=== PATIENT | male | born 1965 | race Caucasian/White ===

== ENCOUNTER 2021-07-29 09:39 | Inpatient (IN) | payer OTHER ==
[~2021-07-29] VITALS: Ht 170.2 cm; Wt 75.0 kg
[2021-07-29] VITALS (7 sets, daily range): BP systolic 103–116; BP diastolic 64–74
[2021-07-29] MEDS ORDERED: SODIUM CHLORIDE 0.9% 1,000 ML IV ONE (11:00)
[2021-07-29] MEDS ORDERED: ONDANSETRON HCL 4 MG/2 ML VIAL IVP ONE (11:00)
[2021-07-29] MEDS ORDERED: KETOROLAC TROMETHAMINE 30 MG/ML VIAL IVP ONE (11:00)
[2021-07-29 11:17] LABS: BASOPHILS % (AUTO) 0.3 % (0.0-2.0); EOSINOPHILS % (AUTO) 0.8 % (1.0-6.0); HEMATOCRIT 43.6 % (41-53); HEMOGLOBIN 14.8 g/dL (13.5-17.5); LYMPHOCYTES # (AUTO) 1.9 K/uL (1.0-4.8); LYMPHOCYTES % (AUTO) 20.6 % (22.0-44.0); MEAN CORPUSCULAR HEMOGLOBIN 29.1 pg (26.0-34.0); MEAN CORPUSCULAR HGB CONC 33.9 G/dL (31.0-37.0); MEAN CORPUSCULAR VOLUME 86 fL (80-100); MONOCYTES # (AUTO) 0.6 K/uL (0.1-1.0); NEUTROPHILS # (AUTO) 6.4 K/uL (1.8-7.7); NEUTROPHILS % (AUTO) 71.3 % (40.0-70.0); PLATELET COUNT (AUTO) 271 K/uL (150-450); RED BLOOD CELL COUNT(AUTO) 5.09 MIL/uL (4.50-5.90)
[2021-07-29 11:24] LABS: ANION GAP 5 mmol/L (8-16); CALCIUM, TOTAL 8.9 mg/dL (8.8-10.5); CARBON DIOXIDE 32 mmol/L (22-29); CHLORIDE 104 mmol/L (98-107); CREATININE 0.97 mg/dL (0.60-1.30); GLOMERULAR FILTR. RATE CALC > 60 mL/min (>60); GLUCOSE,RANDOM 91 mg/dL (70-110); POTASSIUM 4.3 mmol/L (3.5-5.1); SODIUM SERUM 141 mmol/L (136-145); UREA NITROGEN, BLOOD 10 mg/dL (7-18)
[2021-07-29 11:27] LABS: COVID AG,FIA SOURCE NASOPHARYNGEAL
[2021-07-29 11:41] LABS: ALANINE AMINOTRANSFERASE 25 U/L (12-78); ALBUMIN 3.7 g/dL (3.4-5.0); ALKALINE PHOSPHATASE 56 U/L (46-116); ASPARTATE AMINOTRANSFERASE 16 U/L (15-37); BILIRUBIN,TOTAL 0.4 mg/dL (0.1-1.0); TOTAL PROTEIN, SERUM 7.7 g/dL (6.4-8.2)
[2021-07-29] MEDS ORDERED: HydrOXYzine PAMOATE 50 MG CAPSULE PO PRN (11:45)
[2021-07-29] MEDS ORDERED: IBUPROFEN 600 MG TABLET PO PRN (11:45)
[2021-07-29] MEDS ORDERED: ONDANSETRON HCL 4 MG/2 ML VIAL IVP PRN (11:45)
[2021-07-29] MEDS ORDERED: CloNIDine HCL 0.1 MG TABLET PO PRN ×2 (11:45)
[2021-07-29] MEDS ORDERED: ACETAMINOPHEN 325 MG TABLET PO PRN ×2 (11:45)
[2021-07-29] MEDS ORDERED: LORazepam 1 MG TABLET PO PRN (11:45)
[2021-07-29] MEDS ORDERED: DICYCLOMINE HCL 10 MG CAPSULE PO PRN (11:45)
[2021-07-29] MEDS ORDERED: MAG HYDROX/AL HYDROX/SIMETH ES 30 ML SUSPENSION UDCUP PO PRN ×2 (11:45)
[2021-07-29] MEDS ORDERED: LOPERAMIDE HCL 2 MG/15 ML SUSPENSION UDCUP PO PRN (11:45)
[2021-07-29] MEDS ORDERED: PROMETHAZINE HCL 25 MG TABLET PO PRN (11:45)
[2021-07-29] MEDS ORDERED: BACLOFEN 10 MG TABLET PO PRN (11:45)
[2021-07-29] MEDS ORDERED: TraZODone HCL 50 MG TABLET PO PRN (11:45)
[2021-07-29] MEDS: CloNIDine HCL 0.1 MG TABLET PO SCH ×3 (12:00→21:00)
[2021-07-29] MEDS: SODIUM CHLORIDE 0.45% 1,000 ML IV SCH (13:48)
[2021-07-29] MEDS ORDERED: INFLUENZA VIRUS VACCINE QVS 2021-22 (6MO+)/PF 60 MCG/0.5 ML SYRINGE IM. ONE (15:15)
[2021-07-29 23:24] LABS: AMPHET/METH SCREEN,URINE POSITIVE (NEGATIVE); BARBITURATE SCREEN, URINE NEGATIVE (NEGATIVE); BENZODIAZEPINES SCREEN,URINE NEGATIVE (NEGATIVE); CANNABINOID SCREEN,URINE NEGATIVE (NEGATIVE); COCAINE SCREEN,URINE NEGATIVE (NEGATIVE); METHADONE SCREEN, URINE NEGATIVE (NEGATIVE); OPIATE SCREEN,URINE NEGATIVE (NEGATIVE); PHENCYCLIDINE SCREEN,URINE NEGATIVE (NEGATIVE)
[2021-07-30] MEDS: SODIUM CHLORIDE 0.45% 1,000 ML IV SCH ×2 (01:41→17:02)
[2021-07-30 01:46] VITALS: BP 120/77
[2021-07-30] MEDS: CloNIDine HCL 0.1 MG TABLET PO SCH ×4 (05:26→22:05)
[2021-07-30 05:30] VITALS: BP 119/81
[2021-07-30 07:21] VITALS: BP 104/68
[2021-07-30 20:24] VITALS: BP 103/67
[2021-07-31 03:19] VITALS: BP 96/57
[2021-07-31] MEDS: SODIUM CHLORIDE 0.45% 1,000 ML IV SCH ×2 (05:56→19:29)
[2021-07-31] MEDS: CloNIDine HCL 0.1 MG TABLET PO SCH ×4 (05:58→22:13)
[2021-07-31 07:29] VITALS: BP 102/68
[2021-07-31] MEDS: HydrOXYzine PAMOATE 50 MG CAPSULE PO PRN ×2 (10:02→16:57)
[2021-07-31 12:26] VITALS: BP 105/63
[2021-07-31 15:42] VITALS: BP 102/64
[2021-07-31 16:58] VITALS: BP 111/69
[2021-07-31 19:30] VITALS: BP 108/70
[2021-08-01 04:00] VITALS: BP 110/68
[2021-08-01] MEDS: CloNIDine HCL 0.1 MG TABLET PO SCH ×4 (06:31→22:07)
[2021-08-01 07:41] VITALS: BP 116/77
[2021-08-01] MEDS: HydrOXYzine PAMOATE 50 MG CAPSULE PO PRN (08:04)
[2021-08-01] MEDS: SODIUM CHLORIDE 0.45% 1,000 ML IV SCH (08:05)
[2021-08-01 12:00] VITALS: BP 97/60
[2021-08-01 17:00] VITALS: BP 103/62
[2021-08-01 19:35] VITALS: BP 106/64
[2021-08-02] VITALS (7 sets, daily range): BP systolic 75–116; BP diastolic 39–70
[2021-08-02] MEDS: CloNIDine HCL 0.1 MG TABLET PO SCH ×4 (05:37→22:00)
[2021-08-02 07:09] LABS: BASOPHILS % (AUTO) 0.6 % (0.0-2.0); EOSINOPHILS % (AUTO) 2.8 % (1.0-6.0); HEMATOCRIT 45.2 % (41-53); HEMOGLOBIN 15.5 g/dL (13.5-17.5); LYMPHOCYTES # (AUTO) 1.7 K/uL (1.0-4.8); LYMPHOCYTES % (AUTO) 27.2 % (22.0-44.0); MEAN CORPUSCULAR HEMOGLOBIN 29.4 pg (26.0-34.0); MEAN CORPUSCULAR HGB CONC 34.3 G/dL (31.0-37.0); MEAN CORPUSCULAR VOLUME 86 fL (80-100); MONOCYTES # (AUTO) 0.7 K/uL (0.1-1.0); MONOCYTES % (AUTO) 11.4 % (2.0-9.0); NEUTROPHILS # (AUTO) 3.7 K/uL (1.8-7.7); PLATELET COUNT (AUTO) 226 K/uL (150-450); RED BLOOD CELL COUNT(AUTO) 5.27 MIL/uL (4.50-5.90)
[2021-08-02 07:22] LABS: ALANINE AMINOTRANSFERASE 21 U/L (12-78); ALBUMIN 3.4 g/dL (3.4-5.0); ALKALINE PHOSPHATASE 67 U/L (46-116); ANION GAP 4 mmol/L (8-16); ASPARTATE AMINOTRANSFERASE 15 U/L (15-37); BILIRUBIN,TOTAL 0.3 mg/dL (0.1-1.0); CALCIUM, TOTAL 9.2 mg/dL (8.8-10.5); CARBON DIOXIDE 32 mmol/L (22-29); CHLORIDE 104 mmol/L (98-107); CREATININE 1.08 mg/dL (0.60-1.30); GLOMERULAR FILTR. RATE CALC > 60 mL/min (>60); GLUCOSE,RANDOM 93 mg/dL (70-110); POTASSIUM 4.6 mmol/L (3.5-5.1); SODIUM SERUM 140 mmol/L (136-145); TOTAL PROTEIN, SERUM 7.6 g/dL (6.4-8.2); UREA NITROGEN, BLOOD 17 mg/dL (7-18)
[2021-08-02] MEDS: DOXYCYCLINE HYCLATE 100 MG TABLET PO SCH ×2 (14:17→20:44)
[2021-08-03 01:00] VITALS: BP 115/58
[2021-08-03 05:17] VITALS: BP 119/67
[2021-08-03] MEDS: CloNIDine HCL 0.1 MG TABLET PO SCH ×2 (05:33→12:00)
[2021-08-03 08:06] LABS: BASOPHILS % (AUTO) 0.4 % (0.0-2.0); EOSINOPHILS % (AUTO) 3.5 % (1.0-6.0); HEMATOCRIT 43.4 % (41-53); LYMPHOCYTES # (AUTO) 2.1 K/uL (1.0-4.8); LYMPHOCYTES % (AUTO) 37.8 % (22.0-44.0); MEAN CORPUSCULAR HEMOGLOBIN 29.4 pg (26.0-34.0); MEAN CORPUSCULAR HGB CONC 34.5 G/dL (31.0-37.0); MEAN CORPUSCULAR VOLUME 85 fL (80-100); MONOCYTES # (AUTO) 0.6 K/uL (0.1-1.0); MONOCYTES % (AUTO) 10.2 % (2.0-9.0); NEUTROPHILS # (AUTO) 2.6 K/uL (1.8-7.7); NEUTROPHILS % (AUTO) 48.1 % (40.0-70.0); PLATELET COUNT (AUTO) 237 K/uL (150-450); RED BLOOD CELL COUNT(AUTO) 5.09 MIL/uL (4.50-5.90); RED CELL DISTRIBUTION WIDTH 12.7 % (11.5-14.5)
[2021-08-03 08:10] VITALS: BP 95/63
[2021-08-03 08:29] VITALS: BP 106/65
[2021-08-03] MEDS: DOXYCYCLINE HYCLATE 100 MG TABLET PO SCH (08:32)
[2021-08-03 08:33] LABS: ALANINE AMINOTRANSFERASE 18 U/L (12-78); ALBUMIN 3.3 g/dL (3.4-5.0); ALKALINE PHOSPHATASE 65 U/L (46-116); ANION GAP 5 mmol/L (8-16); ASPARTATE AMINOTRANSFERASE 18 U/L (15-37); BILIRUBIN,TOTAL 0.2 mg/dL (0.1-1.0); CALCIUM, TOTAL 8.8 mg/dL (8.8-10.5); CARBON DIOXIDE 31 mmol/L (22-29); CHLORIDE 104 mmol/L (98-107); CREATININE 1.04 mg/dL (0.60-1.30); GLOMERULAR FILTR. RATE CALC > 60 mL/min (>60); GLUCOSE,RANDOM 90 mg/dL (70-110); POTASSIUM 4.6 mmol/L (3.5-5.1); SODIUM SERUM 140 mmol/L (136-145); TOTAL PROTEIN, SERUM 7.3 g/dL (6.4-8.2); UREA NITROGEN, BLOOD 17 mg/dL (7-18)
[2021-08-03 12:32] VITALS: BP 104/60
== END 2021-08-03 18:22 | DRG 897 ==
LOC: EMS 09:39 → 6S 11:41
PROVIDERS: ADMIT Hospitalist; ATTEND Hospitalist
DX: F11.23 Opioid dependence with withdrawal (principal); Z20.822 Contact with and (suspected) exposure to COVID-19; Z79.899 Other long term (current) drug therapy
CPT/HCPCS: 76870; 80053; 85025; 99285; J1885; J2405; J7030